=== PATIENT | male | born 1960 | race African-American/Black ===

== ENCOUNTER 2020-06-22 08:50 | Inpatient (IN) | payer MEDICAID ==
[2020-06-22 09:46] VITALS: BP 146/71
[2020-06-22] MEDS ORDERED: Maalox 30 mL Cup PO PRN (10:24)
[2020-06-22] MEDS ORDERED: Acetaminophen 500 MG TAB PO PRN (10:24)
[2020-06-22] MEDS ORDERED: Magnesium Hydroxide (MOM) 30 mL UDC PO PRN (10:24)
--- NOTE | 2020-06-22 14:54 | History & Physical ---
ADMIT DATE: 06/22/2020 CHIEF COMPLAINT: Dysuria. HISTORY OF PRESENT ILLNESS: We have a 60-year-old male with diabetes, hypertension, bipolar, who presents for psychosis. No fevers, chills, night sweats. No headaches or dizziness. The patient was found wandering the streets, attempting to hurt himself. PAST MEDICAL HISTORY: 1. Bipolar. 2. Diabetes. 3. Hypertension. PAST SURGICAL HISTORY: None. MEDICATIONS: List reviewed. ALLERGIES: None. PHYSICAL EXAMINATION: VITAL SIGNS: Temperature is 98.3, pulse 77, respirations 18, blood pressure 168/86. HEENT: Normocephalic, atraumatic head exam. NECK: Supple. CARDIOVASCULAR: Regular rate and rhythm. LUNGS: Decreased breath sounds. ABDOMEN: Soft, nontender. EXTREMITIES: No edema, cyanosis or clubbing. NEUROLOGIC: Cranial nerves were grossly intact; however, the patient was not cooperative. GENITOURINARY: Exam was declined. Cranial nerve exam is grossly intact ASSESSMENT AND PLAN: 1. Dysuria, rule out urinary tract infection versus sexually transmitted disease. 2. Diabetes. 3. Hypertension. 4. Bipolar. The patient will get a UA, gonorrhea and chlamydia and RPR to rule out any potential STDs and we will go from there. JOB# [id number] GIANNA
--- NOTE | 2020-06-22 18:45 | Psychiatric Evaluation ---
DATE OF SERVICE: 06/22/2020 HISTORY OF PRESENT ILLNESS: This is a 60-year-old male with history of schizophrenia, coming in due to being on a 5150 hold, anxious, agitated, was making suicidal statements. The patient was telling staff, he is homeless, apparently living actually in a transitional living in [place]. The patient denies any current depression, noting that he made those statements because he had taken the wrong bus, ended up in the middle of [place], very far from home without any money and got scared and that is why he called the police. The patient is very anxious, extremely fixated on leaving, states he has [employer] packets that he needs to get to. The patient notes that he had been feeling really despondent and depressed and hopeless, that is why he made the statements. He states that he usually takes Abilify and Wellbutrin. PAST PSYCHIATRIC HISTORY: Admissions in the past. No suicide attempts. FAMILY HISTORY: Noncontributory. MEDICATIONS: The patient also states he takes Wellbutrin. SOCIAL HISTORY: Born in [place], living in a transitional home. Not . He had one daughter who unfortunately . Denying any overt drug use. MENTAL STATUS EXAMINATION: Stated age, wheelchair bound, unruly and irritable, but redirectable, minimizing any SI. No current HI, tangential. Insight questionable. DIAGNOSES: Schizophrenia, mood unspecified. MEDICAL: Please see full H and P. ESTIMATED LENGTH OF STAY: 3-4 days. ASSESSMENT: The patient requiring hospitalization, suicidal, unruly, seems unstable. PLAN: Restart Wellbutrin, Abilify. TREATMENT PLAN: Includes group as well as milieu therapy. CONDITIONS FOR DISCHARGE: Improved mood, improved affect, better control of any mood symptoms. JOB# [id number]
[2020-06-23] MEDS: Multivitamin Tab PO SCH (09:54)
[2020-06-23] MEDS: buPROPion XL 150 mg T 24 H PO SCH (09:54)
[2020-06-23 17:52] LABS: HEMOGLOBIN 13.7 g/dL (14.0-18.0); RED BLOOD COUNT 4.61 MIL/uL (4.2-6.2)
[2020-06-23 17:53] LABS: % NEUTROPHILS 46.3 % (40-70); BASOPHILS % (AUTO) 1.3 % (0.0-2.0); EOSINOPHILS % (AUTO) 5.8 % (0-4); LYMPHOCYTES # (AUTO) 1.4 K/uL (1.0-5.5); LYMPHOCYTES % (AUTO) 34.9 % (20.5-51.5); MEAN CORPUSCULAR HEMOGLOBIN 30 pg (27-31); MEAN CORPUSCULAR HGB CONC 33 % (32-36); MEAN CORPUSCULAR VOLUME 89 fL (79.0-98.0); MONOCYTES % (AUTO) 11.7 % (1.7-9.3); NEUTROPHILS # (AUTO) 1.9 K/uL (1.8-7.7); PLATELET COUNT 145 K/uL (130-430); RED CELL DISTRIBUTION WIDTH 14.7 % (9.0-15.0)
[2020-06-23 17:54] LABS: BASOPHILS # (AUTO) 0.1 K/uL (0.0-0.2); EOSINOPHILS # (AUTO) 0.2 K/uL (0.0-0.4); MONOCYTES # (AUTO) 0.5 K/uL (0.0-1.0)
--- NOTE | 2020-06-23 18:26 | Internal Medicine Prog Note ---
Internal Medicine Subjective - Subjective Service Date: 06/23/20 Patient seen and examined:: without staff Patient is:: awake Per staff patient has:: no adverse event, no episodes of fall (less dysuria) Internal Medicine Objective - Results Result Diagrams: 06/23/20 09:10 Recent Labs: Laboratory Last Values WBC 4.0 K/uL (4.8-10.8) L 06/23/20 09:10 RBC 4.61 MIL/uL (4.2-6.2) 06/23/20 09:10 Hgb 13.7 g/dL (14.0-18.0) L 06/23/20 09:10 Hct 41.0 % (36-54) 06/23/20 09:10 MCV 89 fL (79.0-98.0) 06/23/20 09:10 MCH 30 pg (27-31) 06/23/20 09:10 MCHC 33 % (32-36) 06/23/20 09:10 RDW 14.7 % (9.0-15.0) 06/23/20 09:10 Plt Count 145 K/uL (130-430) 06/23/20 09:10 MPV 10.3 fl (7.4-10.4) 06/23/20 09:10 Neut % (Auto) 46.3 % (40-70) 06/23/20 09:10 Lymph % (Auto) 34.9 % (20.5-51.5) 06/23/20 09:10 [place] % (Auto) 11.7 % (1.7-9.3) H 06/23/20 09:10 Eos % (Auto) 5.8 % (0-4) H 06/23/20 09:10 Baso % (Auto) 1.3 % (0.0-2.0) 06/23/20 09:10 Neut # (Auto) 1.9 K/uL (1.8-7.7) 06/23/20 09:10 Lymph # (Auto) 1.4 K/uL (1.0-5.5) 06/23/20 09:10 [place] # (Auto) 0.5 K/uL (0.0-1.0) 06/23/20 09:10 Eos # (Auto) 0.2 K/uL (0.0-0.4) 06/23/20 09:10 Baso # (Auto) 0.1 K/uL (0.0-0.2) 06/23/20 09:10 POC Glucose 102 MG/DL (70 - 105) 06/22/20 09:17 TSH 0.77 uIU/ml (0.34-5.60) 06/23/20 09:10 - Physical Exam Vitals and I&O: Vital Signs Temp 97.4 F 06/23/20 14:39 Pulse 79 06/23/20 14:39 Resp 20 06/23/20 14:39 BP 123/61 06/23/20 14:39 Pulse Ox 97 06/23/20 14:39 Intake & Output 06/22/20 06/23/20 06/23/20 18:59 06:59 18:59 Intake Total 240 1000 Balance 240 1000 Weight (lbs) 95.254 kg Intake: Oral 240 1000 Other: # Voids 3 # Bowel Movements 0 1 Stool Characteristics Soft Weight Source Estimated Active Medications: Current Medications Acetaminophen (Tylenol) 650 mg PO Q4H PRN PRN Reason: Pain (Mild 1-3) Stop: 08/21/20 10:23 Acetaminophen (Tylenol Extra Strength) 1,000 mg PO Q6H PRN PRN Reason: Pain (Moderate 4-6) Stop: 08/21/20 10:23 Last Admin: 06/22/20 15:14 Dose: 1,000 mg Al Hydrox/Mg Hydrox/Simethicone (Maalox) 30 ml PO Q4HR PRN PRN Reason: GI DISTRESS Stop: 08/21/20 10:23 Aripiprazole (Abilify) 10 mg PO HS [facility]; Protocol Stop: 08/21/20 20:59 Last Admin: 06/22/20 20:45 Dose: 10 mg Benztropine Mesylate (Cogentin) 0.5 mg PO BID PRN PRN Reason: EPS symptoms Stop: 08/22/20 16:59 Bupropion HCl (Wellbutrin Xl) 150 mg PO DAILY [facility]; Protocol Stop: 08/22/20 08:59 Last Admin: 06/23/20 09:54 Dose: 150 mg Ceftriaxone Sodium (Rocephin) 1 gm IM Q24HR [facility] Stop: 08/21/20 14:14 Last Admin: 06/23/20 15:30 Dose: 1 gm Doxycycline Hyclate (Vibramycin) 100 mg PO Q12HR [facility] Stop: 08/21/20 14:14 Last Admin: 06/23/20 09:53 Dose: 100 mg Ibuprofen (Motrin) 400 mg PO Q4H PRN PRN Reason: Pain (Severe 7-10) Stop: 08/21/20 10:23 Last Admin: 06/23/20 16:12 Dose: 400 mg Lorazepam (Ativan) 0.5 mg PO Q4HR PRN; Protocol PRN Reason: Anxiety Stop: 07/22/20 10:23 Magnesium Hydroxide (Milk Of Magnesia) 30 ml PO HS PRN PRN Reason: Constipation Multivitamins/Vitamin C (Theragran) 1 tab PO DAILY [facility] Stop: 08/22/20 08:59 Last Admin: 06/23/20 09:54 Dose: 1 tab Zolpidem Tartrate (Ambien) 5 mg PO HS PRN PRN Reason: Insomnia Stop: 08/21/20 10:23 Last Admin: 06/22/20 21:32 Dose: 5 mg HEENT: NC/AT, PERRLA Neck: Supple Lungs: CTAB Cardiovascular: RRR, Normal S1, Normal S2 Abdomen: soft Internal Medicine Assmt/Plan - Assessment Assessment: 1. Dysuria 2. DM/HTN 3. Bipolar - Plan Plan: continue Rocephin 1 gram IM daily continue doxycycline 100 mg po BID d/w r.n. await u/a await GC/ Chlamydia
--- NOTE | 2020-06-23 22:15 | Progress Notes ---
DATE: 06/23/2020 SUBJECTIVE: A 60-year-old male with history of schizophrenia, well oriented on exam. Apparently was making some comments that he wanted to hurt himself. The patient told me that he told the police that he was suicidal, called the police stating he was suicidal because he was lost in the middle of the city, had no money to get back on a bus, felt desperate and made these statements to get help, but had no intent or plan of wanting to hurt himself. In fact, he was trying to actually act as an agent for himself. The patient is calm right now, demanding per staff, irritable, sometimes not very cooperative, but will apologize for his behavior, is remorseful. Patient still remains on a 5150 hold, stating he is able to take the bus back home. Currently on dosing of Abilify and also noting that he takes Wellbutrin. Also Cogentin. Medications were reviewed. Labs reviewed. Vitals were reviewed. ASSESSMENT: A 60-year-old male, currently in the hospital. Concerns about secondary gain, malingering, but he is actually noting that he ____ information because he was lost in the city with no money. Ongoing concerns about suicide, suicidality, chronically mentally ill. PLAN: We will continue inpatient monitoring, err on the side of caution, monitor for further 24 hours. JOB# [id number]
[2020-06-24] MEDS: buPROPion XL 150 mg T 24 H PO SCH (08:08)
[2020-06-24] MEDS: Multivitamin Tab PO SCH (08:08)
--- NOTE | 2020-06-24 20:10 | Discharge Summary ---
DATE OF DISCHARGE: 06/24/2020 HISTORY OF PRESENT ILLNESS: A 60-year-old male coming into the hospital on a hold, was making some suicidal comments. Noted to be depressed, hopeless, despairing, threatening to harm himself. When he presented, he was irritable, upset, demanding to leave, telling me that he just made these statements to try to get the attention of the police because he took the wrong bus, got lost in the city, he had no money and needed to get home and could not get home because he had no money and he is in a wheelchair, so we did this to essentially not stay on the streets at night. PAST PSYCHIATRIC HISTORY: Admissions in the past, schizophrenia. Denies any suicide attempts. FAMILY HISTORY: Noncontributory. SOCIAL HISTORY: He does have a unit that he rents. Denies any drugs. MEDICATIONS: Noted. MENTAL STATUS EXAMINATION: Please see full psych eval for details. DIAGNOSES: Schizophrenia, mood, unspecified; rule out malingering. MEDICAL: Please see full H and P. HOSPITAL COURSE: After initial assessment, the patient presented as mostly fixated on leaving. No overt depressive symptoms, calm, generally cooperative and engaged, no indication he was suicidal, actually very focused on his future, wanting to get home, noting his business to attend to his apartment. Staff noting calm, generally cooperative, just irritable, focused on leaving. CONDITION UPON DISCHARGE: Improved, linear, engaged, and calmer. No SI, no HI. No intent, no plan overt psychotic symptoms. Tolerant of Abilify. Fair insight. DIAGNOSIS: Schizophrenia, rule out malingering. PAST MEDICAL HISTORY: Please see full H and P. PROGNOSIS: The patient follows up with outpatient mental health services and remains compliant with treatment. Prognosis will improve, otherwise guarded. JOB# [id number]
== END 2020-06-24 10:10 | disposition home or self-care (01) | DRG 885 ==
LOC: GERO 08:50
PROVIDERS: ADMIT Psychiatry & Neurology Psychiatry; ATTEND Psychiatry & Neurology Psychiatry
DX: F20.9 Schizophrenia, unspecified (principal); N39.0 Urinary tract infection, site not specified; E11.9 Type 2 diabetes mellitus without complications; I10 Essential (primary) hypertension; F31.9 Bipolar disorder, unspecified; R30.0 Dysuria; Z76.5 Malingerer [conscious simulation]
CPT/HCPCS: 36415-UA; 82607-90; 82948-90; 83036-90; 84443-TC; 85025-TC; 86592-TC; G0410; J0696; U0003-CS; Z7610